=== PATIENT | male | born 1970 | race Caucasian/White ===

== ENCOUNTER 2022-05-08 18:22 | Emergency (ER) | payer OTHER, SELFPAY ==
[2022-05-08 18:43] VITALS: BP 166/100; PULSE 62; RESP 16; TEMP 36.1; O2SAT 97; BMI 39.9
--- NOTE | 2022-05-08 19:42 | ED_ITS ---
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 Patient states he developed some back pain last night prior to going to bed, the back pain is on the right side upper lumbar area, he went to work today a [employer] and it bothered him all day, he is on his feet all day, he got associated nausea with the pain. Took some Tylenol 500 mg after w ork and had an episode of vomiting. Pain is 4/10, dull ache, no radiation, patient denies any abdominal pain, denies any urinary complaints, patient has had normal bowel movements. Patient denies any chest pain or shortness of breath, denies any cardiac history. He is recently on radiation for a spot they found on his liver, patient did have a recent scan 2 weeks ago. He is no longer on chemotherapy. Denies any fevers, chills myalgias arthralgias. Due to the worsening pain he presents emerged department. Related Data Home Medications Medication Instructions Recorded Confirmed No Known Home Medications 05/08/22 05/08/22 Allergies Allergy/AdvReac Type Severity Reaction Status Date / Time No Known Drug Allergies Allergy Verified 05/08/22 18:49 Review of Systems Status of ROS: Reports: 10 or more systems reviewed and unremarkable except as noted in History and below Exam Narrative: Exam Narrative: General: No obvious distress sitting comfortably HEENT: Tympanic membranes within normal limits bilaterally oropharynx is clear and voice, neck is supple full range of motion, pupils equal round and reactive to light extraocular muscles intact Lungs: Clear to auscultation bilaterally Heart: S1-S2, regular rhythm Abdomen: Distended but soft, bowel sounds present Muscle skeletal: Tender to palpation the right upper lumbar paraspinal musculature, CVA tenderness, no midline tenderness. Neuro: Alert awake and oriented x3 Psych: Mood and affect normal Const: Vital Signs, click to edit/add: Vital Signs - 24 hr 05/08/22 18:43 Temperature 97.0 F L Pulse Rate [Right Radial] 62 Respiratory Rate 16 Blood Pressure [Ri ght Upper Arm] 166/100 H Pulse Oximetry 97 Course Course Hospital Course: Vitals show mildly elevated blood pressure we will continue to monitor, workup will include IV peripheral, 0.9 normal saline bolus, 15 mg IV Toradol and 4 mg IV Zofran for pain and nausea, will obtain urinalysis, CBC, CMP and lipase. Likely obtain CT abdomen pelvis without IV contrast, rule out any metastasize or possible urolithiasis, likely muscle skeletal in nature. Differential diagnosis include life-threatening cauda equina and epidural abscess. Other differential diagnosis considered sprain, contusion, nerve root entrapment, radiculopathy, muscle spasm, urolithiasis, lumbar fracture pyelonephritis as well as other etiologies. Patient denied saddle anesthesia bowel or bladder incontinence or lower extremity weakness. Reevaluation(s) Reevaluation #1: Patient feeling better after the above care given, pain is improved. CBC shows no leukocytosis, platelet count of 134, fell percentage at 76.9, metabolic panel within normal limits, still awaiting urinalysis. Plan to obtain CT abdomen pelvis without IV contrast. Due to shift change transfer of care was given to Dr. Stephane Moses, please see his note for final disposition and plan. Time: 20:42 Vital Signs Vital signs: Initial Vital Signs Temperature 97.0 F L 05/08/22 18:43 Temperature Source Temporal Artery Scan 05/08/22 18:43 Pulse Rate 62 05/08/22 18:43 Respiratory Rate 16 05/08/22 18:43 Blood Pressure 166/100 H 05/08/22 18:43 Blood Pressure Mean 122 05/08/22 18:43 Blood Pressure Position Sitting 05/08/22 18:43 Pulse Oximetry 97 05/08/22 18:43 Oxygen Delivery Method 05/08/22 18:43 Vital Signs Temperature 97.0 F L 05/08/22 18:43 Pulse Rate 62 05/08/22 18:43 Respiratory Rate 16 05/08/22 18:43 Blood Pressure 166/100 H 05/08/22 18:43 Pulse Oximetry 97 05/08/22 18:43 Temperature 97.0 F L 05/08/22 18:43 Pulse Rate 62 05/08/22 18:43 Respiratory Rate 16 05/08/22 18:43 Blood Pressure 166/100 H 05/08/22 18:43 Pulse Oximetry 97 05/08/22 18:43 Medical Decision Making Lab Data Labs: Lab Results 05/08/22 05/08/22 Range/Units 20:05 20:05 WBC 6.51 (4.50-11.00) K/uL RBC 4.74 (4.30-5.90) m/uL Hgb 14.6 (13.5-17.5) gm/dL Hct 42.5 (37.0-53.0) % MCV 90 (80-100) fL MCH 31 (26-34) pg MCHC 34 (32-36) gm/dL RDW Coeff of Radha 12.3 (11.5-15.5) % Plt Count 134 L (140-440) K/uL Neut % (Auto) 76.9 H (42.0-72.0) % Lymph % (Auto) 12.9 L (20-44) % [place] % (Auto) 8.8 (0.0-11.0) % Eos % (Auto) 0.9 (0.0-7.0) % Baso % (Auto) 0.3 (0.0-3.0) % Neut # (Auto) 5.00 (1.7-7.0) K/uL Lymph # (Auto) 0.80 L (0.90-2.90) K/uL [place] # (Auto) 0.60 (0.00-0.90) K/UL Eos # (Auto) 0.06 (0.00-0.50) K/uL Baso # (Auto) 0.02 (0.00-0.30) K/uL Abs Immat Gran (auto) 0.01 (0.00-0.30) K/uL Sodium 139 (135-149) mmol/L Potassium 4.8 (3.6-5.1) mmol/L Chloride 103 (96-114) mmol/L Carbon Dioxide 27 (20-32) mmol/L BUN 15 (7-30) mg/dL Creatinine 1.2 (0.5-1.5) mg/dL Estimated Creat Clear 58.61 Estimated GFR 73 ml/min Glucose 116 H (60-115) mg/dL Calcium 9.1 (8.4-10.6) mg/dL Total Bilirubin 0.8 (0.1-1.5) mg/dL AST 46 H (12-35) U/L ALT 36 (4-50) U/L Alkaline Phosphatase 121 (40-150) U/L Total Protein 7.6 (6.0-8.3) g/dL Albumin 4.4 (3.3-5.0) g/dL Lipase 47 (23-300) U/L Discharge Plan Discharge Clinical Impression: Lower back pain Patient Disposition: Home, Self-Care Condition: Improved Instructions: Acute Low Back Pain (ED) Prescriptions: No Action No Known Home Medications 0RF Follow Up/Referrals: Adrián Turner MD [Primary Care Provider] - Stand Alone Forms: [employer] Info Instructions
[2022-05-08] MEDS: 0.9 % SODIUM CHLORIDE 1000 ml 1,000 ML IV (20:08)
[2022-05-08] MEDS: KETOROLAC 15 MG/ML inj IVP (20:08)
[2022-05-08] MEDS: ONDANSETRON 2 MG/ML inj 4 MG IVP (20:09)
[2022-05-08 20:16] LABS: Basophils Absolute Auto 0.02 K/uL (0.00-0.30); Basophils Percent Auto 0.3 % (0.0-3.0); Eosinophils Absolute Auto 0.06 K/uL (0.00-0.50); Eosinophils Percent Auto 0.9 % (0.0-7.0); Hematocrit 42.5 % (37.0-53.0); Hemoglobin* 14.6 gm/dL (13.5-17.5); Immature Granulocytes Abs Auto 0.01 K/uL (0.00-0.30); Lymphocytes Percent Auto 12.9 % (20-44); Mean Corpuscular HGB Conc 34 gm/dL (32-36); Mean Corpuscular Hemoglobin 31 pg (26-34); Mean Corpuscular Volume 90 fL (80-100); Monocytes Percent Auto 8.8 % (0.0-11.0); Neutrophils Percent Auto 76.9 % (42.0-72.0); Platelet Count* 134 K/uL (140-440); RDW Coefficient of Variation % 12.3 % (11.5-15.5); Red Blood Count 4.74 m/uL (4.30-5.90); White Blood Count* 6.51 K/uL (4.50-11.00)
[2022-05-08 20:18] LABS: Slide Review Reflex No
[2022-05-08 20:33] LABS: Albumin* 4.4 g/dL (3.3-5.0)
[2022-05-08 20:34] LABS: Chloride* 103 mmol/L (96-114); Potassium* 4.8 mmol/L (3.6-5.1); Sodium* 139 mmol/L (135-149)
[2022-05-08 20:36] LABS: Alkaline Phosphatase* 121 U/L (40-150); Aspartate Amino Transferase* 46 U/L (12-35); Bilirubin Total* 0.8 mg/dL (0.1-1.5); Blood Urea Nitrogen* 15 mg/dL (7-30); Carbon Dioxide* 27 mmol/L (20-32); Creatinine* 1.2 mg/dL (0.5-1.5); Est. Creatinine Clearance* 58.61; Estimated Glomerular Filt Rate 73 ml/min; Glucose* 116 mg/dL (60-115); Lipase* 47 U/L (23-300); Total Protein* 7.6 g/dL (6.0-8.3)
[2022-05-08 20:37] LABS: Alanine Aminotransferase* 36 U/L (4-50); Calcium* 9.1 mg/dL (8.4-10.6)
--- NOTE | 2022-05-08 21:10 | CRLHL7_ITS ---
For Patients: As a result of the Century Cures Act, medical imaging exams and procedure reports are released immediately into your electronic medical record. You may view this report before your referring provider. If you have questions, please contact your health care provider. INDICATION: Right-sided CVA tenderness. History of colon cancer and nephrolithiasis. TECHNIQUE: Noncontrast abdominopelvic CT. COMPARISON: January 08, 2022. Correlation is made with an MRI of the abdomen February 04, 2022. FINDINGS: New moderately severe right-sided hydronephrosis and hydroureter with right perinephric fat stranding secondary to a nearly 7 mm stone in the proximal right ureter just beyond the UPJ image 62 series 2, previously in the right kidney itself. Additional tiny punctate approximately 2 mm stone upper right kidney. No stones on the left. No left-sided hydronephrosis. No stones within the urinary bladder which is largely decompressed. The prostate gland and seminal vesicles are unremarkable. Postsurgical change from resection of the low rectosigmoid colon with an anastomotic suture line. When compared to January 08, 2022 there is a low dense lesion/metastasis in the right hepatic lobe image 26 series 2 measuring 2.4 x 4.0 cm previously 2.4 x 3.8 cm, segment 7. There is a 2nd larger metastasis within segment 6 of the right hepatic lobe measuring approximately 3.8 x 4 cm not well seen on January 08, 2022. No biliary dilatation. Cholelithiasis. No splenomegaly. The pancreas and adrenal glands are unremarkable. Normal unenhanced left kidney. The abdominal aorta and iliac arteries are of normal caliber. No ascites or lymphadenopathy. Clear included lung bases. IMPRESSION: 1. Moderately severe right-sided hydronephrosis and hydroureter secondary to a nearly 7 mm stone just beyond the right ureteropelvic junction. 2 mm stone upper pole right kidney. No stones on the left. 2. Two hepatic metastases one of which may be new and the other which is larger. Please see MRI February 04, 2022. 3. Postsurgical change from rectosigmoid anastomosis. Please note that all CT scans at this facility use dose modulation, iterative reconstruction, and/or weight-based dosing when appropriate to reduce radiation dose to as low as reasonably achievable. Dictated by Rajendra Alcala MD @ 05/08/2022 10:22:00 PM (Electronically Signed)
--- NOTE | 2022-05-08 21:31 | W.PC.EDHO ---
Primary Language: Preferred Language: Orientation Status: [] Alert & Oriented [] Slight Confusion [] Known Dx Dementia Transfers By: [] Assist of 1 [] Assist of 2 [] Lift Active Medications Generic Name Dose Route Start Last Admin Trade Name Patience PRN Reason Stop Dose Admin Ondansetron HCl 4 mg 05/08/22 19:55 05/08/22 20:09 Ondansetron 2 Mg/Ml Inj IVP 4 mg ONCE PRN Administration Discontinued Medications Generic Name Dose Route Start Last Admin Trade Name Patience PRN Reason Stop Dose Admin Sodium Chloride 1,000 mls @ 1,000 mls/hr 05/08/22 19:56 05/08/22 21:13 0.9 % Sodium Chloride 1000 Ml IV 05/08/22 20:55 Infused .Q1H MARIAH Infusion Ketorolac Tromethamine 15 mg 05/08/22 19:55 05/08/22 20:08 Ketorolac 15 Mg/Ml Inj IVP 05/08/22 19:56 15 mg ONCE ONE Administration Description of Symptoms ED Triage Present Problem patient is having pain in the lower back on the Description left side. minorly bothering last night. was getting ready for work and no injury. states a strong constant ache. got to work feeling nauseated. hx of radiation on the liver has a ca spot able to get rid of that. ED Triage Date of Onset of 05/08/22 Symptoms Pain Pain Description [Lower Back] Throbbing,Acute Pain Intensity [Lower Back] 5 Pain Intensity 3 Pain Scale Used [Lower Back] Numeric (1 - 10) Pain Scale Used Numeric (1 - 10) IV Insertion/Site Date of IV Line Insertion [ 05/08/22 Left Antecubital] Oxygen Administration Pulse Oximetry 97 Oxygen Delivery Method Room Air
[2022-05-08 22:14] LABS: Appearance Urine Clear (Clear); Bilirubin Urine Negative (Negative); Blood Urine 3+ (Negative); Color Urine Brown (Yellow); Glucose Urine Negative (Negative); Ketones Urine Negative (Negative); Leukocyte Esterase Urine Negative (Negative); Nitrite Urine Negative (Negative); Protein Urine 2+ (Negative); Specific Gravity Urine >= 1.030 (1.000-1.030); Urobilinogen Urine 0.2 (0.2-1.0); pH Urine 5.5 (5.0-8.5)
[2022-05-08 22:42] LABS: Other Sediment Urine 0; RBC Urine >100 (0-2)
[2022-05-08 22:55] VITALS: BP 161/96; PULSE 62; RESP 16; O2SAT 98
--- NOTE | 2022-05-08 23:20 | ED.GENADULT ---
HPI - General Adult General Chief complaint: Back Injury/Pain Stated complaint: Lower Right Back Pain Time Seen by Provider: 05/08/22 19:42 Source: patient Related Data Home Medications Medication Instructions Recorded Confirmed No Known Home Medications 05/08/22 05/08/22 Allergies Allergy/AdvReac Type Severity Reaction Status Date / Time No Known Drug Allergies Allergy Verified 05/08/22 18:49 PFSH PFSH Social History Do you use any of these nicotine containing products: None Second hand tobacco smoke exposure: No Non-prescribed substance use: denies use service: No Exam Const: Vital Signs, click to edit/add: Vital Signs - 24 hr 05/08/22 18:43 05/08/22 22:55 Temperature 97.0 F L Pulse Rate [Right Radial] 62 62 Respiratory Rate 16 16 Blood Pressure [Ri ght Upper Arm] 166/100 H 161/96 H Pulse Oximetry 97 98 Course Course Hospital Course: Vitals show mildly elevated blood pressure we will continue to monitor, workup will include IV peripheral, 0.9 normal saline bolus, 15 mg IV Toradol and 4 mg IV Zofran for pain and nausea, will obtain urinalysis, CBC, CMP and lipase. Likely obtain CT abdomen pelvis without IV contrast, rule out any metastasize or possible urolithiasis, likely muscle skeletal in nature. Differential diagnosis include life-threatening cauda equina and epidural abscess. Other differential diagnosis considered sprain, contusion, nerve root entrapment, radiculopathy, muscle spasm, urolithiasis, lumbar fracture pyelonephritis as well as other etiologies. Patient denied saddle anesthesia bowel or bladder incontinence or lower extremity weakness. Vital Signs Vital signs: Initial Vital Signs Temperature 97.0 F L 05/08/22 18:43 Temperature Source Temporal Artery Scan 05/08/22 18:43 Pulse Rate 62 05/08/22 18:43 Respiratory Rate 16 05/08/22 18:43 Blood Pressure 166/100 H 05/08/22 18:43 Blood Pressure Mean 122 05/08/22 18:43 Blood Pressure Position Sitting 05/08/22 18:43 Pulse Oximetry 97 05/08/22 18:43 Oxygen Delivery Method 05/08/22 18:43 Vital Signs Temperature 97.0 F L 05/08/22 18:43 Pulse Rate 62 05/08/22 18:43 Respiratory Rate 16 05/08/22 18:43 Blood Pressure 166/100 H 05/08/22 18:43 Pulse Oximetry 97 05/08/22 18:43 Temperature 97.0 F L 05/08/22 18:43 Pulse Rate 62 05/08/22 22:55 Respiratory Rate 16 05/08/22 22:55 Blood Pressure 161/96 H 05/08/22 22:55 Pulse Oximetry 98 05/08/22 22:55 Medical Decision Making MDM Narrative Medical decision making narrative: Care for this patient was handed to me at the end of Dr. Hernandez's shift. See his note for more information. He was waiting for results of CT scan. He and the patient indicated that he got great relief of his symptoms from the medication given which included Toradol. CT scan does report returned with evidence of a 7 mm stone in the right ureteropelvic junction. I informed the patient regarding these findings in indicated that he may need some help from a urologist as this is a larger than average stone and it is sit in proximally in regard to the urinary tract. The patient prefers to return home. He did received prescriptions for Toradol and [place]. I advised him to follow-up with his oncologist and to make a connection with the urologist. He should return if recurrent or worsening symptoms happen. Lab Data Labs: Lab Results 05/08/22 05/08/22 05/08/22 Range/Units 20:05 20:05 21:48 WBC 6.51 (4.50-11.00) K/uL RBC 4.74 (4.30-5.90) m/uL Hgb 14.6 (13.5-17.5) gm/dL Hct 42.5 (37.0-53.0) % MCV 90 (80-100) fL MCH 31 (26-34) pg MCHC 34 (32-36) gm/dL RDW Coeff of Radha 12.3 (11.5-15.5) % Plt Count 134 L (140-440) K/uL Neut % (Auto) 76.9 H (42.0-72.0) % Lymph % (Auto) 12.9 L (20-44) % [place] % (Auto) 8.8 (0.0-11.0) % Eos % (Auto) 0.9 (0.0-7.0) % Baso % (Auto) 0.3 (0.0-3.0) % Neut # (Auto) 5.00 (1.7-7.0) K/uL Lymph # (Auto) 0.80 L (0.90-2.90) K/uL [place] # (Auto) 0.60 (0.00-0.90) K/UL Eos # (Auto) 0.06 (0.00-0.50) K/uL Baso # (Auto) 0.02 (0.00-0.30) K/uL Abs Immat Gran (auto) 0.01 (0.00-0.30) K/uL Sodium 139 (135-149) mmol/L Potassium 4.8 (3.6-5.1) mmol/L Chloride 103 (96-114) mmol/L Carbon Dioxide 27 (20-32) mmol/L BUN 15 (7-30) mg/dL Creatinine 1.2 (0.5-1.5) mg/dL Estimated Creat Clear 58.61 Estimated GFR 73 ml/min Glucose 116 H (60-115) mg/dL Calcium 9.1 (8.4-10.6) mg/dL Total Bilirubin 0.8 (0.1-1.5) mg/dL AST 46 H (12-35) U/L ALT 36 (4-50) U/L Alkaline Phosphatase 121 (40-150) U/L Total Protein 7.6 (6.0-8.3) g/dL Albumin 4.4 (3.3-5.0) g/dL Lipase 47 (23-300) U/L Urine Color Brown A (Yellow) Urine Appearance Clear (Clear) Urine pH 5.5 (5.0-8.5) Ur Specific [place] >= 1.030 (1.000-1.030) Urine Protein 2+ A (Negative) Urine Glucose (UA) Negative (Negative) Urine Ketones Negative (Negative) Urine Blood 3+ A (Negative) Urine Nitrite Negative (Negative) Urine Bilirubin Negative (Negative) Urine Urobilinogen 0.2 (0.2-1.0) Ur Leukocyte Esterase Negative (Negative) Urine RBC >100 A (0-2) Urine WBC 5-10 A (0-5) Ur Squamous Epith Cells None (None-Few) Other Sediment 0 (None) Urine Bacteria None (None) Discharge Plan Discharge Clinical Impression: Lower back pain, Calculus, ureteral Patient Disposition: Home, Self-Care Condition: Improved Instructions: Acute Low Back Pain (ED) Prescriptions: No Action No Known Home Medications 0RF Follow Up/Referrals: Adrián Turner MD [Primary Care Provider] - Stand Alone Forms: [facility] Info Instructions
== END 2022-05-08 23:40 | disposition home or self-care (01) ==
PROVIDERS: Emergency Provider Student in an Organized Health Care Education/Training Program; PCP Family Medicine
DX: N20.1 Calculus of ureter (principal); M54.50 Low back pain, unspecified
CPT/HCPCS: 36415; 74176; 80053; 81001; 83690; 85025; 87086; 96374; 96375; 99283; 99284; 99285; J1885; J2405; J7030

== ENCOUNTER 2022-05-21 12:51 | Outpatient (CLI) | payer OTHER, SELFPAY ==
--- OUTSIDE RECORDS SUMMARY | 2022-04-21 09:14 | XMS_ITS | Continuity of Care Document ---
:1970 Author Care Team Providers Name Role Phone MD Andie Turner Primary Care Physician MD Belkys Attending Physician Unavailable Allergies, Adverse Reactions, Alerts No known allergies Social History Smoking Status Status Start Date End Date Date of Observat ion Never smoked tobacco July 3:05pm (finding) Additional Data Assigned Sex Male Problems Active Problems Medical Problem Onset Date Status GI bleed Active Colon adenocarcinoma November 01, 2018 Active Exposure to COVID-19 virus Active Medications Medication Status Dose Units Route Directions Qty Days Start End Ins tructions Date Date Bisacodyl Active 5 MG PO Daily as 30 (Dulcolax) 5 needed Mg TAB Diphenoxylate Active 1-2 TAB PO Four Times 45 Decembe Hcl/Atropine Daily as r 1st, (Lomotil) 2.5 needed 2020 Mg/0.025 Mg 11:55am TAB Ibuprofen Active 600 MG PO Every 6 30 Hours as needed Loperamide Active 2-4 MG PO As Needed 1 Novembe ta ke as directed on the box for watery diarrhea not Hcl (Imodium) r 3rd, contr olled with lomotil.DC when stools <6/day 2 Mg CAP 2019 4:10pm Lorazepam Active 0.5-1 MG PO Bedtime as 30 Februar If needed for insomnia after chemo treatments. Do not take needed y 10th, with alcoho l or other sedating medications. 2020 3:00pm Metamucil Active Crackers Ondansetron Active 4 MG PO Every July Hcl (Zofran) Hours as , 4 Mg TAB needed 2019 5:21pm Prochlorperaz Active 10 MG PO Three Times 45 Decembe ine Maleate A Day as r , needed 2020 4:03pm Amoxicillin/C Discontin 1 TAB PO Twice Daily ua lavulanate ued For 14 Days r 15th, ry Potassium 2020 16, (Amoxicillin 12:40pm 2021 & Pot 9:32am Clavulanate) 875 Mg/125 Mg TAB Capecitabine Discontin 1500 MG PO Twice A Day 84 14 M arch take 3 ued r , 30, tablets twice 2020 2021 daily D1-14 8:51am 10:11a in a 21 day m cycle. Capecitabine Discontin 1500 MG PO Twice A Day 84 14 ecemb ON HOLD ued r 17th, er 1500 mg PO B ID DAYS 1-14, Q21D. 2020 10, 12:18pm 2020 11:54a m Capecitabine Discontin 1500 MG PO Twice A Day 84 April 1500 mg PO ued 28th, er BID DAYS 2020 17, 1-14, Q21D. 12:37pm 2020 12:18p m Capecitabine Discontin 2000 MG PO Twice A Day 128 uar J arpit Take 4 * 500 mg tablets= total dose (Xeloda) 500 ued y , 14, of 20 00 mg twice daily for 7 days on and 7 days off, in 28 Mg TAB 2020 2020 day cycle. 2:42pm 1:34pm Capecitabine Discontin 2000 MG PO Twice A Day 128 14 ebrua Take 4 * 500 mg tablets= total dose (Xeloda) 500 ued r 16th, ry of 20 00 mg twice daily for 7 days on and 7 days off, in 28 Mg TAB 2020 07, day cycle. 9:31am 2020 2:42pm Capecitabine Discontin 1500 MG PO Twice A Day 84 ecemb Take 3 * 500 mg tablets= total dose (Xeloda) 500 ued r 18th, er of 15 00 mg twice daily for 7 days on and 7 days off, in 28 Mg TAB 2019, day cycle. 1:36pm 2019 9:31am Capecitabine Discontin 1500 MG PO Twice A Day 84 14 N ovemb Take3 * 500 mg tablets= total dose (Xeloda) 500 ued er er of 1500 mg twice daily for 14 days in 21 day cycle. Mg TAB 15, 2019 12:17pm 1:36pm Capecitabine Discontin 300 MG OR Twice A Day 56 April tem Take 2 * 150 mg tablets and 3 * 500 mg tablets= total dose (Xeloda) 150 ued , keely of 1800 mg twice daily for 14 days in 21 day cycle. Mg TAB 2019, 3:39pm 2019 12:17p m Capecitabine Discontin 1500 MG PO Twice A Day 84 April tem Take 2 * 150 mg tablets and 3 * 500 mg tablets= total dose (Xeloda) 500 ued 29, keely of 1800 mg twice daily for 14 days in 21 day cycle. Mg TAB 2019, 3:39pm 2019 12:17p m Capecitabine Discontin 300 MG OR Twice A Day 56 April y (Xeloda) 150 ued , , Mg TAB 2019 2019 1:30pm 3:39pm Capecitabine Discontin 1500 MG PO Twice A Day 84 April y (Xeloda) 500 ued , , Mg TAB 2019 2019 1:30pm 3:39pm Capecitabine Discontin 1500 MG PO Twice A Day 56 April PO BID DAYS 1- 14, Q21D X8 CYCLES. Dispense appropriate combo ued , er of pills to ob tain ordered dose. 21 day supply. 2018, 1:26pm 2018 11:10a m Capecitabine Discontin 2000 MG PO Twice A Day 56 January PO BID DAYS 1-14, Q21D X8 CYCLES. Dispense appropriate combo ued , , of pills to ob tain ordered dose. 21 day supply. 2018 2018 4:42pm 1:26pm Diazepam Discontin 5 MG PO Three Times January (Valium) 5 Mg ued A Day 2018 3:19pm Diphenoxylate Discontin 1-2 TAB PO Four Times 45 Novembe D ecemb Hcl/Atropine ued Daily as r 3rd, er (Lomotil) 2.5 needed 2019 10, Mg/0.025 Mg 4:01pm 2020 TAB 11:54a m Diphenoxylate Discontin 1-2 TAB PO Four Times 30 Novembe N ovemb Hcl/Atropine ued Daily as r 2nd, er (Lomotil) 2.5 needed 2019 3rd, Mg/0.025 Mg 12:19pm 2019 TAB 4:01pm Diphenoxylate Discontin 2 TAB PO Four Times 30 Septemb N ovemb Hcl/Atropine ued Daily as er , er (Lomotil) 2.5 needed 2019 2nd, Mg/0.025 Mg 9:47am 2019 TAB 12:17p m Enoxaparin Discontin 40 MG SUBQ Daily 04 March Sodium ued 2018 9:19am Lidocaine Discontin 1 PATCH TOP Every January CRISTEL LY FOR 12 (Lidoderm) 5 ued Hours , HOURS O F % TDSY 2018 EVERY 24 HOUR 3:19pm PERIOD Lidocaine-Raine Discontin 1 KIT EX As Needed 26 March Akbar anguiano locaine ued , er (Lido-Prilo 2018, Jose Pack 3:41pm 2018 2.5-2.5 %) 1 11:10a Kit KIT m Loperamide Discontin 2 MG PO as needed Novemb loose stools Hcl (Imodium ued er A-D) 2 Mg CAP 2018 11:10a m Lorazepam Discontin 0.5-1 MG PO Every 4 50 Decembe February [place] N ued Hours as r 1st, 3rd, Nausea/vom iti needed for 2020 2021 ng Nausea/Vomi 8:53am 3:14pm ting Lorazepam Discontin 0.5-1 MG PO Every 4 50 Decembe Decemb P RN ued Hours as r 1st, er Nausea/vom iti needed for 2020 10, ng Nausea/Vomi 8:49am 2020 ting 8:53am Lorazepam Discontin 0.5-1 MG PO Bedtime as Febru a If needed for insomnia after chemo treatments. Do not take ued needed er ry with alcohol or other sedating medications. , , 2019 2020 11:32am 2:59pm Lorazepam Discontin 0.5-1 MG PO Every 4 January Novemb PRN ued Hours as , er Nausea/vomi ti needed for 2018, ng Nausea/Vomi 4:42pm 2018 ting 11:10a m Potassium Discontin 20 MEQ PO Daily Januar Chloride ued r , y 2019, 8:51am 2020 12:29p m Prochlorperaz Discontin 5 MG PO Three Times 24 May De cemb ine Maleate ued A Day as , er needed 2019, 1:35pm 2020 4:03pm Prochlorperaz Discontin 10 MG PO Every 4-6 22 February Akbar anguiano PRN ine Maleate ued Hours as , er Nause a/vomiti needed for 2018, ng Nausea/Vomi 4:42pm 2018 ting 11:10a m Sofosbuvir-Ve Discontin 1 TAB PO Daily 20 February lpatasvir ued , (Epclusa 2019 400-100 Mg) 1 3:19pm Tab TAB Tizanidine Discontin 4 MG PO Three Times January Hcl ued A Day as , needed 2018 3:19pm Immunizations Immunization Event Not Given Dose Pipe Finisher Lot Number Vac cine Date Reason Number Informatio n Statement (VIS) Deta il COVID-19 Pfizer January 24 [id number] [id number] 2020 COVID-19 Pfizer February 26 [email or web address] [id number] 2020 Relevant Diagnostic Tests and/or Laboratory Data Laboratory Results Test Date/Time Result Interpretation Reference Result Comment Performing Range Site White Blood December 3.86 5.00-10.00 [facility] Count 2021 [facility] 8:51am [place] [address] Red Blood December 4.11 4.32-5.72 [facility] Count 2021 [facility] 8:51am [place] [address] Hemoglobin December 13.5 13.5-17.5 [facility] 2021 [facility] [address] 8:51am [place] [address] Hematocrit December 38.5 38.8-50.0 [facility] [address] [facility] [address] 8:51am [place] [address] Mean December 94 81-95 [facility] Corpuscular [address] 8:51am [place] [address] Mean December 33 27-34 [facility] Corpuscular [address] [facility] [address] Hemoglobin 8:51am [facility] [place] [address] Mean December 35 32-36 [facility] Corpuscular [address] [facility] [address] Hemoglobin 8:51am [place] [address] Concent Platelet December 173 150-450 [facility] Count 2021 [facility] [address] 8:51am [place] [address] RDW December 13.4 11.5-15.3 [place] [facility] Coefficient [address] [facility] [address] of Variation 8:51am [place] [address] Neutrophils March 32.4 50.0-70.0 [facility] (%) (Auto) 2021 [facility] 8:51am [place] [address] Lymphocytes March 40.4 25.0-45.0 [facility] (%) (Auto) 2021 [facility] 8:51am [place] [address] Monocytes (%) December 15.8 0.00-11.0 [facility] (Auto) 2021 [facility] 8:51am [place] [address] Eosinophils March 9.6 0.0-7.0 [facility] (%) (Auto) 2021 [facility] 8:51am [place] [address] Basophils (%) December 0.8 0.0-3.0 [facility] (Auto) 2021 [facility] 8:51am [place] [address] Immature March 1.0 [facility] Granulocyte % 2021 [facility] (Auto) 8:51am [place] [address] RDW May 01, 11.9 11.5-15.3 [place] [facility] Coefficient 2020 [address] [facility] of Variation 1:21pm [place] [address] Neutrophils # December 1.25 1.70-7.00 [facility] (Auto) 2021 [facility] 8:51am [place] [address] Lymphocytes # December 1.56 0.90-2.90 [facility] (Auto) 2021 [facility] 8:51am [place] [address] Monocytes # December 0.61 0.30-0.90 [facility] (Auto) 2021 [facility] 8:51am [place] [address] Eosinophils # December 0.37 0.00-0.50 [facility] (Auto) 2021 [facility] 8:51am [place] [address] Basophils # December 0.03 0.00-0.20 [facility] (Auto) 2021 [facility] 8:51am [place] [address] Immature March 0.04 [facility] Granulocyte # 2021 [facility] (Auto) 8:51am [place] [address] Random March 126 60-115 [facility] Glucose 2021 [facility] 8:51am [place] [address] Blood Urea December 14 7-30 [facility] Nitrogen 2021 [facility] 8:51am [facility] [address] Creatinine December 1.1 0.5-1.5 [facility] 2021 [facility] 8:51am [place] [address] Estimated March 65.749 [facility] Creatinine 2021 [facility] Clearance 8:51am [facility] [address] Sodium Level December 139 135-149 [facility] 2021 [facility] 8:51am [facility] [address] Potassium December 4.1 3.6-5.1 [facility] Level 2021 [facility] 8:51am [facility] [address] Chloride December 101 96-114 [facility] Level 2021 [facility] 8:51am [facility] [address] Carbon December 28 20-32 [facility] Dioxide Level 2021 [facility] 8:51am [facility] [address] Calcium Level December 9.1 8.4-10.6 [facility] 2021 [facility] 8:51am [facility] [address] Magnesium November 2.2 1.5-2.6 [facility] Level 2020 [facility] 1:10pm [facility] [address] Total Protein December 7.5 6.0-8.3 The use of [facility] Lab 2021 Eltrombopag, a 1999 [facility] 8:51am [place] [address] stimulant used to treat thrombocytopeni a and aplastic anemia, interferes with this measurement of total protein. A 5% bias has been observed. Albumin December 4.4 3.3-5.0 [facility] 2021 [facility] 8:51am [facility] [address] Total March 0.5 0.1-1.5 [facility] Bilirubin [address] 8:51am [place] [address] Aspartate January 22 12-35 [facility] Amino Transf [address] (AST/SGOT) 8:51am [place] [address] Alanine January 19 4-50 [facility] Aminotransfer 2021 [facility] ase 8:51am [facility] [address] (ALT/SGPT) Alkaline December 40-150 [facility] Phosphatase [address] 8:51am [facility] [address] Coronavirus August NEGATIVE NEGATIVE The 2018 [facility] (COVID-19)(PC 2020 SARS-CoV- coronavirus [address] [facility] R) 11:06am 2 (SARS-CoV-2) [place] [address] target nucleic acids are not detected by RT-PCR. This result does not rule out SARS-CoV-2 in the patient, as the sensitivity of the test depends on timing of the specimen collection and quality of the specimen. Results should be correlated with the patient's history and clinical presentation. Carcinoembryo January 01, 3.0 <=3.8 [facility] [employer] maribel Antigen 2021 INFORMATION: [address] 10:01am [address]cinoembryoni [facility] [address] c AntigenThe Kim CEA electrochemilum inescent immunoassay was used.Results obtained with different test methods or kits cannot beused interchangeably . Measurement of CEA has been shown to beclinically relevant in the management of patients withcolorectal, breast, lung, prostatic, pancreatic, and ovariancarcinom as. Smokers may have slightly elevated levels of CEA.The CEA assay value, regardless of level, should not beinterpreted as evidence for the presence or absence of malignantdiseas e and is not recommended for use as a screening procedureto detect the presence of cancer in the general population.Perf ormed By: [address] [place], [place] [email or web address] Director: Geena Giron MD Advance Directives Advance Directive Response Recorded Date/Time Has patient completed a No August 23 3:05pm Health Care Directive? Insurance Providers Guarantor Marita Hall Address [address] [facility] [address] Contact Info. Home Phone: Payer Policy Id Coverage Id Subscriber's Subscriber Id Effective E xpiration Name Date Date [facility] [id number] Marita Hall [address] Encounters Encounter Location(s) Arrival/Admit Date Discharge/Depart Date Provider(s) Registered [place] April 02, 2022 Kamala Rizvi [facility] 7:07am Plan of Treatment Future Tests Future scheduled test information is unavailable Pending Tests Pending diagnostic test information is unavailable Future Visits Future appointment information is unavailable Referrals to Other Providers Reason for Referral Start Provider Provider Contact Provider Address Referral Date Information Adrián Turner Work Phone: ASHISH ROWLEY [facility] Andie FRANCOIS [address] [place] [address] [facility] [phone] Future Procedures Future procedure information is unavailable Future Medications Future medication information is unavailable Patient Instructions See Additional Instructions Palonosetron (By injection) Palonosetron (By injection)
--- NOTE | 2022-05-21 13:00 | CRLHL7_ITS ---
For Patients: As a result of the Century Cures Act, medical imaging exams and procedure reports are released immediately into your electronic medical record. You may view this report before your referring provider. If you have questions, please contact your health care provider. INDICATION: Colon cancer. Hepatic metastases. History of pulmonary nodules. TECHNIQUE: Contrast-enhanced CT of the chest abdomen and pelvis. COMPARISON: January 08, 2022. Correlation is made with an abdominopelvic CT May 08, 2022. FINDINGS: CT chest: There is an approximate 2 mm pulmonary nodule within the left upper lobe image 29 series 3 not convincingly present previously. There is a tiny pulmonary nodule at the right lung base image 40 series 3 measuring 2-3 mm previously 5 mm. Again noted is fibrosis or atelectasis at the left lung base and right middle lobe. No pleural or pericardial effusions. The trachea and mainstem bronchi are patent and clear. No thoracic lymphadenopathy. The included thyroid gland is unremarkable. There is a radiodense device within the subcutaneous soft tissues of the medial left chest wall likely a cardiac event recorder seen previously. CT of the abdomen and pelvis: 2.2 x 3.2 cm lesion segment VII of the liver previously 2.5 x 3.9 cm. Low-dense lesion segment right hepatic lobe, image 84 series 2 measuring 3.6 x 4.2 cm previously on January 08, 2022 it measured up to 2.1 cm. No other additional hepatic lesions are confidently identified. There are however 3 new small clips within the right hepatic lobe potentially fiducial markers. A lesion described in segment 5 of the right hepatic lobe on January 08, 2022 is not at all well seen on today`s study. No splenomegaly. The pancreas is unremarkable. Cholelithiasis. Normal adrenal glands. Normal-appearing left kidney. Persistent moderate to moderately severe right-sided hydronephrosis and proximal to mid hydroureter secondary to a nearly 7 mm stone within the middle 3rd of the right ureter. This has progressed or moved slightly more distally when compared to May 08, 2022. Urologic consultation may be warranted for stone extraction. The stomach and duodenum are largely decompressed. The small large bowel are negative for obstruction ileus. There is no evidence for ascites. Postsurgical change from rectosigmoid resection and reanastomosis, image 188 series 2. The urinary bladder, prostate gland, and seminal vesicles are normal. The included skeleton is unremarkable. IMPRESSION: 1. 2 millimeter left upper lobe pulmonary nodule possibly new. Small decrease in the size of right lung base nodule from 5 millimeters down to between 2 and 3 millimeters. 2. Two right hepatic lobe metastases as described. The segment lesion is larger than on January 08, 2022. The lesion in segment VII of the liver is slightly smaller. A small lesion described in segment V of the prior study January 08, 2022 is not convincingly seen today. 3. No new hepatic lobe lesions. Three new small radiodense markers in the right hepatic lobe possibly fiducial markers. 4. Cholelithiasis. No convincing evidence for cholecystitis. 5. Persistent right-sided hydronephrosis secondary to a 7 mm stone in the middle 3rd of the right ureter. Urologic consultation regarding stone retrieval may be helpful. 6. No skeletal lesions identified. Please note that all CT scans at this facility use dose modulation, iterative reconstruction, and/or weight-based dosing when appropriate to reduce radiation dose to as low as reasonably achievable. Dictated by Rajendra Alcala MD @ 05/21/2022 8:15:52 PM (Electronically Signed)
--- NOTE | 2022-05-21 13:45 | CRLHL7_ITS ---
For Patients: As a result of the Century Cures Act, medical imaging exams and procedure reports are released immediately into your electronic medical record. You may view this report before your referring provider. If you have questions, please contact your health care provider. MRI ABDOMEN W/WO CONTRAST, 05/21/2022 INDICATION: Colon cancer. COMPARISON: CT dated 05/08/2022, and 01/08/2022; MRI dated 02/04/2022 and 05/09/2021. TECHNIQUE: Multiphasic, multisequence MRI of the abdomen, liver protocol was performed without and with contrast. 15 cc of Dotarem administered intravenously. FINDINGS: Overall evaluation is significantly limited by deficient clinical information. What is clear and as seen previously, there is a post-ablation site in segment VII measuring 2.9 x 2.1 cm, without evidence of residual or recurrent disease after the ablation performed late 2020. An area/lesion in a subcapsular location in the posterior right hepatic lobe, segment measures 5.6 x 4.0 cm on this examination, significantly increased from MRI dated 02/04/2022, but not significantly changed since 05/08/2022 CT examination when it measured 5.6 x 4.0 cm. On previous MRI it measured 27 x 22 mm. On this examination there is partial T1 signal hyperintensity, and there is stranding and trace edema around the lesion. No subtracted images are available. The lesion/area that demonstrated enhancement previously, however now does not clearly do so. There is an irregular margin which is somewhat atypical for post-ablation changes although somethings such as the T1 signal hyperintensity suggests that it could be. In addition, three fiducials which appeared sometime between 01/08 and 05/08 within the inferior right hepatic lobe suggest potentially radiation has been performed externally. Persistent right-sided hydronephrosis associated with a stone was seen better on the CT dated 05/06. No suspicious lymphadenopathy in the upper abdomen. Adrenal glands appear normal. Large gallstone in the gallbladder which is nondistended however. The spleen is normal in size. No ascites. No pleural effusion in the lung bases. IMPRESSION: 1. Stable post-ablation change in a segment VII lesion after ablation performed at the end of 2020 without evidence of residual or recurrent disease. 2. Interval enlargement of the lesion in segment compared to prior MRI with an irregular margin and intrinsic T1 hyperintensity, with minimal if any enhancement. However, the lesion is stable since 05/08. This could represent changes from ablation but since there are multiple fiducials also in the area this could also be SBRT change (although this is not typically performed for ablatable liver lesions). Correlate with history. 3. Persistent severe right sided hydronephrosis related to ureteral stone. 4. No suspicious lymphadenopathy. Barron Barry M.D. Interventional Radiology/Diagnostic Radiology (IR/DR) [email or web address] DW/Dictated by: Barron Barry MD @ 05/24/2022 12:45:00 PM (Electronically Signed)
[2022-05-21 15:22] LABS: Basophils Absolute Auto 0.03 K/uL (0.00-0.30); Basophils Percent Auto 0.5 % (0.0-3.0); Eosinophils Absolute Auto 0.24 K/uL (0.00-0.50); Eosinophils Percent Auto 4.2 % (0.0-7.0); Hematocrit 38.5 % (37.0-53.0); Hemoglobin* 13.4 gm/dL (13.5-17.5); Immature Granulocytes Abs Auto 0.04 K/uL (0.00-0.30); Lymphocytes Absolute Auto 1.14 K/uL (0.90-2.90); Mean Corpuscular HGB Conc 35 gm/dL (32-36); Mean Corpuscular Hemoglobin 31 pg (26-34); Mean Corpuscular Volume 89 fL (80-100); Monocytes Percent Auto 10.5 % (0.0-11.0); Neutrophils Absolute Auto 3.64 K/uL (1.7-7.0); Neutrophils Percent Auto 64.1 % (42.0-72.0); Platelet Count* 145 K/uL (140-440); RDW Coefficient of Variation % 12.1 % (11.5-15.5); Red Blood Count 4.35 m/uL (4.30-5.90); White Blood Count* 5.69 K/uL (4.50-11.00)
[2022-05-21 15:37] LABS: Albumin* 4.2 g/dL (3.3-5.0); Chloride* 102 mmol/L (96-114)
[2022-05-21 15:38] LABS: Potassium* 5.2 mmol/L (3.6-5.1); Sodium* 136 mmol/L (135-149)
[2022-05-21 15:39] LABS: Slide Review Reflex No
[2022-05-21 15:40] LABS: Aspartate Amino Transferase* 33 U/L (12-35); Bilirubin Total* 0.7 mg/dL (0.1-1.5); Carbon Dioxide* 30 mmol/L (20-32); Creatinine* 1.7 mg/dL (0.5-1.5); Estimated Glomerular Filt Rate 48 ml/min
[2022-05-21 15:41] LABS: Alanine Aminotransferase* 18 U/L (4-50); Alkaline Phosphatase* 126 U/L (40-150); Blood Urea Nitrogen* 28 mg/dL (7-30); Calcium* 9.1 mg/dL (8.4-10.6); Glucose* 103 mg/dL (60-115); Total Protein* 7.6 g/dL (6.0-8.3)
[2022-05-23 12:34] LABS: Carcinoembryonic Antigen 2.5 ng/mL (<=3.8)
== END 2022-05-21 12:52 | disposition home or self-care (01) ==
PROVIDERS: PCP Family Medicine; Visit Provider Internal Medicine Hematology & Oncology
DX: C18.9 Malignant neoplasm of colon, unspecified (principal); K76.9 Liver disease, unspecified; N13.30 Unspecified hydronephrosis
CPT/HCPCS: 36415; 71260; 74177; 74183; 80053; 82378; 85025; A9575; Q9967

== ENCOUNTER 2022-07-31 07:58 | Outpatient (CLI) | payer OTHER, SELFPAY ==
--- NOTE | 2022-07-31 09:00 | CRLHL7_ITS ---
For Patients: As a result of the Century Cures Act, medical imaging exams and procedure reports are released immediately into your electronic medical record. You may view this report before your referring provider. If you have questions, please contact your health care provider. Indication: Metastatic colon cancer. Technique: Contrast CT chest abdomen pelvis Comparison: CT chest abdomen and pelvis 05/21/2022 Findings: Normal caliber thoracic aorta heart size is normal. No pericardial effusion. Previous 2 millimeter left upper lobe nodule not clearly seen on the current study. 4 millimeter pulmonary nodule right lower lobe series 3, image 40 is not significantly changed. There is no effusion. Again similar findings of right middle and lower lobe atelectasis/consolidation. Stable post ablation changes segment 7 measuring approximately 2.2 x 3.2 centimeters unchanged. Series 2 image 109. Tiny low-density lesion anterior inferior right hepatic lobe series 2, image 118 not clearly seen on the prior study too small to characterize attention on follow-up. Decreased size of low-density subcapsular right posterior hepatic lobe low density lesion ( segment 6 )with adjacent fiducial markers. This area measures 5 by 3.5 centimeters previously measuring 5.9 x 4 centimeters when remeasured similarly locations. Spleen pancreas unremarkable cholelithiasis gallbladder contracted there may be some wall thickening or inflammatory change. No hydronephrosis currently seen on the right or obstructing stone kidneys unremarkable. Normal caliber abdominal aorta. Urinary bladder unremarkable. Prostate gland unremarkable fat containing inguinal hernias. Anastomosis rectosigmoid colon the bowel appears unremarkable no adenopathy is seen. No suspicious bony lesions are seen. Impression: 1. Stable post ablation changes segment 7. Slight decrease size in segment low density from the prior with adjacent fiducial markers. 2. 4 millimeter right lower lobe pulmonary unchanged. No new nodules are seen. Similar appearance of right middle lobe and left lower lobe opacities and basilar atelectasis. Please note that all CT scans at this facility use dose modulation, iterative reconstruction, and/or weight-based dosing when appropriate to reduce radiation dose to as low as reasonably achievable. Dictated by Paula Kendrick MD @ 07/31/2022 10:31:46 AM (Electronically Signed)
--- NOTE | 2022-07-31 09:15 | CRLHL7_ITS ---
For Patients: As a result of the Century Cures Act, medical imaging exams and procedure reports are released immediately into your electronic medical record. You may view this report before your referring provider. If you have questions, please contact your health care provider. Indication: Malignant neoplasm of the rectosigmoid junction. Technique: MRI of the abdomen without and with intravenous gadolinium. Three plane localizer, 3 plane true FISP, axial and coronal T2 weighted haste, axial T1 weighted in and out of phase, axial T2 weighted without and with fat suppression, axial STIR, and pre and post contrast axial coronal T1 weighted fat-suppressed VIBE pulse sequences were obtained. 15 cc of IV dotarem. Comparison: MRI of the abdomen, 05/21/2022. MRI of the abdomen, 02/04/2022. MRI of the abdomen, 05/09/2021. Findings: The patient has undergone microwave ablation of a colorectal liver metastasis in segment VII, which was performed 09/10/2021. The ablation site appears stable when compared with 05/21/2022, with no residual internal contrast enhancement. The defect measures 3.3 x 2.2 cm on image 36, series 15, and is hypointense to adjacent normal liver parenchyma on the portal venous phase. There is an additional defect in segment , which currently measures 4.2 x 3.8 cm, image 52, series 15. This previously measured 4.2 x 4.1 cm on the MR performed 05/21/2022. This may have been treated with radiotherapy. There is a suspicious region of restricted diffusion in segment VIII, near its junction with segment IV, which measures 9 millimeters on image 55, series 11. This corresponds to a hypodense observation on the portal venous phase, CT performed 07/31/2022. A new liver metastasis is suspected. Spleen size is normal. No adrenal mass. Symmetric nephrograms. No solid renal mass. There is no pancreatic mass or glandular atrophy. No pleural or pericardial effusion. Normal marrow signal intensity. Visceral artery branches are patent. IVC is patent. No mucosal hyper enhancement or perienteric edema involving the small bowel/colon. Cholelithiasis. No secondary signs for cholecystitis. Stable region of consolidation within the right middle lobe. Impression: 1. Status post image guided microwave ablation of a colorectal liver metastasis in segment VII. 2. Additional lesion in segment is presumably a metastasis treated with radiotherapy. 3. There is a new lesion in segment VIII, there is junction with segment IV, seen on diffusion weighted imaging. This corresponds with a sub centimeter hypodense lesion on the recent CT scan from 07/31/2022. A new liver metastasis is suspected. Multidisciplinary evaluation is advised. 4. No abdominal lymphadenopathy or ascites. Liver morphology is non cirrhotic. 5. Cases such as this may benefit from a multidisciplinary evaluation. If you would like to have this patent discussed at the weekly [facility] [place] ([facility]) liver tumor conference, please call [phone] or [phone]. Dictated by Emil Dias MD @ 08/05/2022 11:53:35 AM (Electronically Signed)
== END 2022-07-31 07:59 | disposition home or self-care (01) ==
PROVIDERS: PCP Family Medicine; Visit Provider Internal Medicine Hematology & Oncology
DX: C19 Malignant neoplasm of rectosigmoid junction (principal); R91.1 Solitary pulmonary nodule; C78.7 Secondary malignant neoplasm of liver and intrahepatic bile duct
CPT/HCPCS: 71260; 74177; 74183; A9575; Q9967

== ENCOUNTER 2022-09-19 14:24 | Outpatient (RCR) | payer OTHER, SELFPAY ==
--- NOTE | 2022-09-12 14:01 | ONC.NURNOTE ---
Addendum entered by Julieta Scruggs RN 09/16/22 10:57: Patient called back and stated due to being worried about SO he hasn't returned calls. Engineering Tech explained that he needs to take care of himself and get his biopsy done and also come in to [facility] for a quick blood draw so we can send out liquid biopsy. Patient states he will come in within the next week to do liquid biopsy and get number for [facility] Original Note: Engineering Tech called and left message for patient to call-still needs biopsy and also could get liquid biopsy done right here in clinic. No follow ups made patient has been worried about SO
--- NOTE | 2022-09-19 15:22 | ONC.NURNOTE ---
Patient here for liquid biopsy- drawn per [facility] One instuctions packaged in [employer] mailing envelope and [employer] called at for cone picker today at the ER desk uppers edge burnisher planned by 7 pm tonite Transport C# [id number]
--- NOTE | 2022-11-13 12:06 | ONC.NURNOTE ---
Patient given number to [facility] again to get biopsy done-Dr. Barboza
--- NOTE | 2022-11-13 12:19 | ONC.NURNOTE ---
Addendum entered by Geetha Ortiz RN 11/17/22 15:22: Patient called and states that he lost this number, was given to patient again to call and make this appointment. Original Note: Orders re-faxed and patient given phone number to [phone] Patient told to call when appointment set up so that he can see provider and get plan in place
== END 2022-11-24 23:59 | disposition home or self-care (01) ==
LOC: CCIC 14:24
PROVIDERS: PCP Family Medicine; Referring Provider Family Medicine; Visit Provider Internal Medicine Hematology & Oncology
DX: C19 Malignant neoplasm of rectosigmoid junction (principal)
CPT/HCPCS: 99212; 99213; 99214; 99215

== ENCOUNTER 2023-02-04 08:16 | Outpatient (CLI) | payer OTHER, SELFPAY ==
--- NOTE | 2023-02-04 08:15 | CRLHL7_ITS ---
For Patients: As a result of the Century Cures Act, medical imaging exams and procedure reports are released immediately into your electronic medical record. You may view this report before your referring provider. If you have questions, please contact your health care provider. Indication: Malignant neoplasm of the rectosigmoid junction. Comparison: MRI abdomen 07/31/2022, 05/21/2022; 02/04/2022 Technique: MRI of the abdomen was performed with the following sequences: axial and coronal T2 weighted, axial T2 fat saturated, axial diffusion, axial T1 in and out of phase, axial and coronal 3D T1 weighted before and after intravenous contrast administration. Contrast: 15 mL Dotarem Findings: Liver: Noncirrhotic morphology. Patent hepatic vessels. Lesions: -3 cm segment 7 ablation defect without evidence of residual recurrent disease. -4.6 cm segment 6 defect which may represent post radiotherapy changes. No evidence of residual recurrent disease. -1.4 cm focus of diffusion restriction at the junctions of segments 4/8 (series 11, image 20), increased in size from prior examination and which corresponds to hypoattenuated lesion seen on CT performed the same day. Gallbladder: Contains dependently layering stones. Biliary system: No biliary distention, filling defect, mass or stricture. Pancreas: Normal caliber main pancreatic duct. No discrete pancreatic lesions. Other abdominal organs: Spleen, kidneys, and adrenal glands are without focal pathology. Bone marrow signal: Normal Other findings: No lymphadenopathy or ascites Impression: 1. 1.4 cm focus of diffusion restriction at the junctions of segments 4/8 which is increased in size from prior examination with corresponding hypoattenuated lesion on CT scan performed the same day is highly concerning for metastatic disease. 2. Stable post treatment changes involving lesions in segments 6 and 7. Dictated by Quoc Dukes MD @ 02/05/2023 12:53:44 PM (Electronically Signed)
--- NOTE | 2023-02-04 10:00 | CRLHL7_ITS ---
For Patients: As a result of the 21st Century Cures Act, medical imaging exams and procedure reports are released immediately into your electronic medical record. You may view this report before your referring provider. If you have questions, please contact your health care provider. Indication: RECURRENT ADENOCARCINOMA OF COLORECTAL REGION Technique: Postcontrast CT chest, abdomen and pelvis. 100 cc Isovue 370 intravenous contrast. Please note that all CT scans at this facility use dose modulation, iterative reconstruction, and/or weight-based dosing when appropriate to reduce radiation dose to as low as reasonably achievable. Comparison: MRI 02/04/2023, CT 07/31/2022 Findings: In the chest, there is increased size of a masslike density within the left lower lobe measuring 2.4 cm. Also increased size masslike area within the right lung base, now measuring 9.8 x 6.6 cm. The right mainstem bronchus is obstructed. No air bronchograms are present within this area of parenchymal density. No compression fracture. No destructive osseous lesion. Similar mildly prominent precarinal lymph node. Visualized thyroid normal. No axillary adenopathy. No pleural effusion. No pericardial effusion. Mild increased prominence of a faint parenchymal density within the anterior left lung. In the abdomen, there is the suggestion of slight decreased size of the previously noted hypodense mass within the inferior liver, now measuring 4.3 cm compared to 4.7 cm on the prior exam. Also there is the suggestion of decreased size of the hypodense mass more superiorly within the right hepatic lobe which now measures 3.1 x 1.6 cm compared to 3.2 x 2.1 cm on the prior exam. However, there is a new area of subtle decreased density within the left hepatic lobe, see series 10, image 34. This measures 1.5 cm. This area also appears subtle on the MRI exam. Calcified stone in the gallbladder is present measuring 2.6 cm, as before. No biliary obstruction. The spleen is normal. No hiatal hernia. Adrenal glands normal. Normal kidneys. No hydronephrosis. The pancreas is within normal limits. Normal stomach. Small bowel appears normal. No retroperitoneal or mesenteric adenopathy. In the pelvis, and the bladder is incompletely distended with wall thickening that is likely secondary to incomplete distention. Prostate calcifications are present. Postop changes of partial distal colectomy. No inflammatory change. The appendix is normal. Fat filled inguinal hernias are similar. No pelvic or inguinal adenopathy. Similar appearance of the S1 vertebral body on the sagittal reformatted images. Incidental bone islands within the femoral heads. Synovial herniation pit right proximal femur. Impression: There appears to be a new suspicious lesion within the liver measuring 1.5 cm-correlating with the MRI. The other lesions within the liver appear to have decreased in size compared to the prior CT scan from July 2022. Abrupt cutoff of the right mainstem bronchus with resultant complete collapse of the right middle lobe resulting in a masslike area of density in the right lung base which has increased compared to the prior study. Bronchoscopy recommended. Increased size/conspicuity of a nodular density within the left lower lobe measuring 2.4 cm, superimposed upon chronic atelectasis concerning for metastatic focus. Please note that all CT scans at this facility use dose modulation, iterative reconstruction, and/or weight-based dosing when appropriate to reduce radiation dose to as low as reasonably achievable. Dictated by Seth Tomlinson MD @ 02/06/2023 1:36:18 PM (Electronically Signed)
== END 2023-02-04 08:17 | disposition home or self-care (01) ==
LOC: MRI 08:17
PROVIDERS: PCP Family Medicine; Visit Provider Internal Medicine Hematology & Oncology
DX: C19 Malignant neoplasm of rectosigmoid junction (principal)
CPT/HCPCS: 71260; 74177; 74183; A9575; Q9967

== ENCOUNTER 2023-07-01 14:30 | Outpatient (RCR) | payer OTHER, SELFPAY ==
--- NOTE | 2022-12-09 14:56 | ONC.NURNOTE ---
Patient did not confirm appointment set up for him for December 08 and continues not to answer calls or return calls. Did not show up for appointment 12/08 Message left for Melvina (life partner) to have Bret call us as well
--- NOTE | 2022-12-30 12:32 | ONC.NURNOTE ---
Patient called asking about MD appointment and going over liquid biopsy. Does admit to having messages on phone but has been so busy with SO and with new job he hasn't been able to call and get things schedule. Patient given number to [facility] interventional radiology but unable to get through so typewriter ribbon winder called and got another number for patient to call [facility] ([phone]) Patient set up for 01/07 liver biopsy at [facility] with Dr. Barboza and pre-op physical January [address] Turner. Then will go over everything January 22 Images pushed to [facility] again and orders re-faxed to [phone]
[2023-01-26 15:12] LABS: Basophils Absolute Auto 0.02 K/uL (0.00-0.30); Basophils Percent Auto 0.3 % (0.0-3.0); Eosinophils Percent Auto 9.5 % (0.0-7.0); Hematocrit 42.9 % (37.0-53.0); Hemoglobin* 14.9 gm/dL (13.5-17.5); Immature Granulocytes Abs Auto 0.02 K/uL (0.00-0.30); Immature Granulocytes Pct Auto 0.3 %; Lymphocytes Absolute Auto 1.77 K/uL (0.90-2.90); Lymphocytes Percent Auto 28.9 % (20-44); Mean Corpuscular HGB Conc 35 gm/dL (32-36); Mean Corpuscular Hemoglobin 32 pg (26-34); Mean Corpuscular Volume 91 fL (80-100); Monocytes Percent Auto 10.8 % (0.0-11.0); Neutrophils Absolute Auto 3.08 K/uL (1.7-7.0); Neutrophils Percent Auto 50.2 % (42.0-72.0); Platelet Count* 149 K/uL (140-440); RDW Coefficient of Variation % 12.1 % (11.5-15.5); Red Blood Count 4.72 m/uL (4.30-5.90); White Blood Count* 6.13 K/uL (4.50-11.00)
[2023-01-26 15:16] LABS: Slide Review Reflex No
[2023-01-26 15:27] LABS: Albumin* 4.3 g/dL (3.3-5.0); Chloride* 105 mmol/L (96-114); Sodium* 141 mmol/L (135-149)
[2023-01-26 15:28] LABS: Potassium* 4.3 mmol/L (3.6-5.1)
[2023-01-26 15:30] LABS: Alkaline Phosphatase* 101 U/L (40-150); Aspartate Amino Transferase* 31 U/L (12-35); Bilirubin Total* 0.6 mg/dL (0.1-1.5); Blood Urea Nitrogen* 18 mg/dL (7-30); Carbon Dioxide* 31 mmol/L (20-32); Creatinine* 0.9 mg/dL (0.5-1.5); Estimated Glomerular Filt Rate 103 ml/min; Total Protein* 7.8 g/dL (6.0-8.3)
[2023-01-26 15:31] LABS: Alanine Aminotransferase* 22 U/L (4-50); Calcium* 9.2 mg/dL (8.4-10.6); Glucose* 81 mg/dL (60-115)
[2023-01-29 10:20] LABS: Carcinoembryonic Antigen 3.7 ng/mL (<=3.8)
--- NOTE | 2023-03-04 09:49 | ONC.NURNOTE ---
Patient came in yesterday evening to discuss recent scan with nursing stating This is why I had that cough Patient had cancelled biopsy due to cough at end of december and hasn't rescheduled and now is concerned about CT scan. Dr. Rizvi did look at scan and wanted patient to report on his breathing due to findings on scan. Patient called this am and message left for him to call back about his breathing. Last evening film writer told patient importance of following through with procedures and importance of taking care of himself due to the cancer growing and this becoming a worse situation the more time he takes to get biopsy and back for treatment. Dr. Rizvi put NEW orders in at [facility] and hopefully patient will follow through with this. (Old orders set up at [facility]) Images pushed to [facility]
--- NOTE | 2023-03-10 10:36 | ONC.NURNOTE ---
Addendum entered by Geetha Ortiz RN 03/10/23 13:17: Roll Out Manager was able to touch base with patient and he is aware of his appointment at 1115 in [place] tomorrow with pulmonary medicine. He will reach out to the number that they left to determine where he needs to go to be seen. Nursing to watch for results and plan of this in order to schedule follow up with Dr. Rizvi. Original Note: Patient called the office this morning stating that he has not yet heard from [facility] regarding his biopsy. Roll Out Manager contacted them, and found that both the pulmonary medicine and radiology consults need to be done in [place]. Pulmonary Medicine consult was scheduled for tomorrow, Thursday at 11:15 by . [place] to call patient and give instructions on where to go for this. This appointment needs to be completed prior to biopsy being scheduled, so patient's appointment for next week will need to be moved out. LMOM for patient to let him know that web content writer made this appointment and that he needs to call [place] [phone] - pulmonary medicine if he was unable to picker/puller the phone when they called him. When web content writer talked to patient earlier today, he said that breathing was fine. Continues to have cough with some blood in mucous. No changes in the last couple of months.
--- NOTE | 2023-03-17 14:16 | ONC.NURNOTE ---
Addendum entered by Tawny Blunt RN 03/18/23 14:54: Pt called today to update [facility] staff that he scheduled a consult and MR with the liver ablation team at [facility]. Appt 04/14/23. Original Note: Family Nurse spoke to pt today after having bronchoscopy yesterday. Appt made for pt to follow up with Dr. Rizvi on 04/02/23. Pt also inquiring about liver ablation, per [facility] they have reached out to pt multiple times. Pt encouraged to call them back to schedule. Pt verbalized understanding of plan of care.
--- NOTE | 2023-03-19 12:35 | ONC.NURNOTE ---
Bret called and reports that his ablation has been scheduled for 03/24/23 he had a video visit today with the ablation team RTC appt reviewed for 03/31/23
--- NOTE | 2023-04-03 15:53 | ONC.NURNOTE ---
SWAPNIL submitted this am for Tramadol via covermymeds patient wants to fruit or nut picker his RX- follow up call to plan to check status and it is still pending- requested expedited review Bret called with update
--- NOTE | 2023-04-06 11:56 | ONC.NURNOTE ---
PA approval for Tramadol 50 mg tablets from 04/03/23-04/03/24 PA # [id number] [facility] Medicaid [place] Uniform Prior Authorization and Formulary Exception Request Form Prior Authorization and Formulary Exception Request for [facility] Medicaid phone fax
[2023-04-24 13:26] LABS: Est. Creatinine Clearance* 66.73; Estimated Glomerular Filt Rate 91 ml/min
== END 2023-07-25 23:59 | disposition home or self-care (01) ==
LOC: CCIC 14:30
PROVIDERS: PCP Family Medicine; Referring Provider Family Medicine; Visit Provider Internal Medicine Hematology & Oncology
DX: C19 Malignant neoplasm of rectosigmoid junction (principal)
CPT/HCPCS: 36415; 36592; 80053; 82378; 82565; 85025; 99212; 99213; 99214; 99215

== ENCOUNTER 2023-08-13 12:41 | Outpatient (CLI) | payer OTHER, SELFPAY ==
--- NOTE | 2023-08-13 13:00 | CRLHL7_ITS ---
For Patients: As a result of the Century Cures Act, medical imaging exams and procedure reports are released immediately into your electronic medical record. You may view this report before your referring provider. If you have questions, please contact your health care provider. INDICATION: Lung cancer. TECHNIQUE: CT chest, abdomen and pelvis acquired with IV contrast. 105 mL Isovue 370 COMPARISON: CT chest abdomen pelvis dated 02/04/2023, MRI 02/04/2023 FINDINGS: Chest: Cardiovascular structures: Heart size is normal. Thoracic aorta and main pulmonary artery are normal in caliber. Mediastinum and paty: No mass or adenopathy. Lungs: A few enlarging nodules measuring 9 millimeters left lung apex 01/05 left lateral upper lobe on measuring 6 millimeters. New nodule in the left lower lobe measuring 7 millimeters . Irregular opacity in the anterior left upper lobe on this could be an area of atelectasis that is unchanged. There is patchy consolidation in the lingula and also left lower lobe the left lower lobe masslike density previously seen is obscured this probably is related to post radiation treatment changes. Decreased size of right middle lobe masslike consolidation without air bronchogram. Pleura and pericardium: No effusions. Chest wall and axilla: No mass or adenopathy. Abdomen and Pelvis: Liver: Ablation changes within liver involving segment 7 and segment 6 are unchanged the prior MRI. New ablation change between segment 4/8 is new from the prior MRI. No new liver lesions are seen. Spleen: Unremarkable. Pancreas: Unremarkable. Gallbladder and bile ducts: Cholelithiasis Kidneys: Unremarkable. Adrenal glands: Unremarkable. GI tract: Rectosigmoid anastomosis. The bowel appears unremarkable Vascular structures: Unremarkable. Lymph nodes: Unremarkable. Miscellaneous: Moderate fat containing inguinal hernias. Pelvic Organs: Mildly enlarged prostate gland. Bones: Unremarkable for age. IMPRESSION: 1. Patchy consolidation in the lingula/left lower lobe most likely reflecting post treated changes. Decreased size of right middle lobe masslike consolidation without air bronchograms. This probably reflects collapse of the right middle lobe. 2. Enlargement of two left-sided pulmonary nodules and a new nodule seen. Findings suspicious for malignancy. 3. Ablation changes in the liver. No suspicious new lesions are seen. Please note that all CT scans at this facility use dose modulation, iterative reconstruction, and/or weight-based dosing when appropriate to reduce radiation dose to as low as reasonably achievable. Dictated by Paula Kendrick MD @ 08/16/2023 6:25:47 AM (Electronically Signed)
== END 2023-08-13 12:42 | disposition home or self-care (01) ==
LOC: CT 12:41
PROVIDERS: PCP Family Medicine; Visit Provider Internal Medicine
DX: C78.01 Secondary malignant neoplasm of right lung (principal); C78.02 Secondary malignant neoplasm of left lung; R59.0 Localized enlarged lymph nodes
CPT/HCPCS: 71260; 74177; Q9967

== ENCOUNTER 2023-08-18 09:36 | Outpatient (RCR) | payer OTHER, SELFPAY ==
--- NOTE | 2024-02-11 08:59 | ONC.NURNOTE ---
Received information from [facility] about patient needing to be seen by Medical Oncology. Patient is scheduled for PET scan in [place] on 02/12/2024, Labs for PDL1 and [id number] testing on 02/15/2024 in [place]. Patient needs follow up after this testing is resulted. He was scheduled on 03/02/[address] Belkys Cordova per [facility] recommendations. LMOM for patient to call back to acknowledge.
== END 2024-02-14 23:59 | disposition home or self-care (01) ==
LOC: CCIC 09:36
PROVIDERS: PCP Family Medicine; Referring Provider Family Medicine; Visit Provider Internal Medicine Hematology & Oncology
DX: C19 Malignant neoplasm of rectosigmoid junction (principal); K76.9 Liver disease, unspecified; R05.9 Cough, unspecified; C78.01 Secondary malignant neoplasm of right lung
CPT/HCPCS: 99212; 99215

== ENCOUNTER 2023-11-24 15:40 | Outpatient (CLI) | payer OTHER, SELFPAY ==
--- NOTE | 2023-11-24 16:00 | CRLHL7_ITS ---
For Patients: As a result of the Century Cures Act, medical imaging exams and procedure reports are released immediately into your electronic medical record. You may view this report before your referring provider. If you have questions, please contact your health care provider. Indication: Colon cancer Technique: CHEST ABDOMEN PELVIS WITH ISOVUE 370 [id number] Please note that all CT scans at this facility use dose modulation, iterative reconstruction, and/or weight-based dosing when appropriate to reduce radiation dose to as low as reasonably achievable. Comparison: 08/13/2023 Findings: In the chest, there is no suspicious thyroid lesion. Masslike opacity within the right infrahilar lung is similar. Interval development of masslike density within the left infrahilar space and persistent parenchymal densities along the left lower lobe bronchovascular bundle. He increased size of peripheral nodule within the left lower lobe now measuring 9 millimeters compared to 6-7 millimeters on the prior study. Increased size of subpleural nodule left upper lobe now measuring 7.5 millimeters compared to 6 millimeters on the prior exam. No pleural effusion. No pneumothorax. Persistent density in the anterior lingula. No fracture is present. Degenerative facet arthropathy L5-S1. Similar nodes in the mediastinum and both paty. In the abdomen, similar morphology in size of multifocal low-density lesions throughout the liver. Slight increased conspicuity of hypodense ill-defined lesion within the right hepatic lobe measuring 3 cm. Chronic peripherally calcified stone in the gallbladder measuring 2.4 cm. No splenic lesion. Adrenal glands are normal. No hydronephrosis. No solid renal mass. Pancreas is normal. Atherosclerotic changes. No enlarged retroperitoneal lymph nodes. In the pelvis, the bladder is normal. Fat filled inguinal hernias are again noted. Postop changes of partial colectomy. No bowel obstruction. No free air or free fluid. No abscess. Normal appendix. Solid fusion across the left SI joint. Impression: Increased size of 2 left-sided pulmonary nodules. Increased masslike opacification within the left infrahilar lung. Increased conspicuity of subtle hypodense mass within the inferior right liver. Similar appearance of the masslike density within the right lung. Please note that all CT scans at this facility use dose modulation, iterative reconstruction, and/or weight-based dosing when appropriate to reduce radiation dose to as low as reasonably achievable. Dictated by Seth Tomlinson MD @ 11/25/2023 11:30:02 AM (Electronically Signed)
== END 2023-11-24 15:41 | disposition home or self-care (01) ==
LOC: CT 15:41
PROVIDERS: PCP Family Medicine; Visit Provider Nurse Practitioner
DX: C18.9 Malignant neoplasm of colon, unspecified (principal); R91.8 Other nonspecific abnormal finding of lung field; R16.0 Hepatomegaly, not elsewhere classified
CPT/HCPCS: 71260; 74177; Q9967

== ENCOUNTER 2024-03-31 17:00 | Outpatient (CLI) | payer OTHER, SELFPAY ==
--- NOTE | 2024-03-31 17:00 | PE_ITS ---
[facility] [address] [facility] [address] Phone:?[phone] Fax:?[phone] Referring Physician Information: Shabnam Rubin N.P. [address] [facility] [place] [facility] [address] Phone:?[phone] Fax:?[phone] Patient:Tiera Ruiz D.O.B:?1970 Sex:?Male Phone:?[phone] [facility] MRN:?[id number] Exam Date:?03/31/2024 EXAM: PET/CT EYES TO THIGHS, CANCER RESTAGING CLINICAL INFORMATION: Colorectal cancer, restaging. TECHNICAL INFORMATION: Helical acquisition of data was obtained from the orbits to the upper thighs with reconstruction of 3.75 mm thick images at 3.[address] data was used for attenuation correction. PET scanning was performed through the same anatomic range 60 minutes following administration of 12.08 mCi of 18-FDG delivered intravenously. The patient's glucose at the time of the injection was 79 mg/dL. PET, CT and PET/CT fusion images are interpreted using a computer viewing workstation. PET, CT and PET/CT fusion images were archived and saved in the patient's permanent medical record. COMPARISON: CT CAP from 11/24/2023, PET-CT from 04/24/2023. INTERPRETATION: Head and Neck: There are no abnormal hypermetabolic foci within the head or neck. There is physiologic uptake in the intracranial soft tissues. Chest: Overall increase in metastatic burden within the chest. Index nodules include: ...a) left apical nodule (Se 2 Im 71) currently measures 1.7 x 1.3 cm with a maximum SUV of 18.02. This nodule measured 1.1 x 1.0 cm in October 2023. ...b) left lower lobe nodule (Se 2 Im 104) currently measures 1.8 x 1.3 cm with a maximum SUV of 25.27. This nodule measured 0.9 x 0.8 cm in October 2023. Poorly circumscribed masslike opacity is seen in the perihilar portions of both lungs. Overall size and conspicuity are stable since October 2023. Maximum SUV in the left infrahilar portion is 15.3. Maximum SUV in the right perihilar portion is 16.15. Corresponding SUVs were not reported on the prior PET-CT. Background mediastinal blood pool uptake has a maximum SUV of 2.71. Abdomen and Pelvis: Hypermetabolic mass lesion in the right hepatic lobe (Se 2 Im 140) has indistinct margins on this nonenhanced attenuation correction CT, but measures roughly 4.4 x 3.6 cm with a maximum SUV of 16.41. The viable component of the lesion measures roughly 3.8 x 2.4 cm in October 2023. Corresponding SUVs were not reported on the prior PET-CT. Background hepatic parenchymal uptake has a maximum SUV of 4.16. There is physiologic excretion of radiotracer in the urine and bowel. Skeleton, Musculature, and Integument: No abnormal hypermetabolic foci within the skeleton. No bhupinder osteoblastic or osteolytic disease. CONCLUSION: Overall worsening disease burden within the lungs and liver. Index lesions provided above. Electronically signed on 04/01/2024 2:44:00 PM by Sloan Dave M.D.
== END 2024-03-31 17:01 | disposition home or self-care (01) ==
LOC: RAD 17:01
PROVIDERS: PCP Family Medicine; Visit Provider Clinical Nurse Specialist
DX: C19 Malignant neoplasm of rectosigmoid junction (principal)
CPT/HCPCS: 78815; A9552

== ENCOUNTER 2024-07-05 12:00 | Outpatient (RCR) | payer OTHER, SELFPAY ==
--- NOTE | 2024-02-29 12:22 | ONC.NURNOTE ---
Late entry from discussion with patient on 02/18/2024: Patient did not make his appointment for his PET scan in [place] 02/11 and is refusing to go there.? He wants this done in [place], it was scheduled for 03/03/2024 (could not get him in today, and that was next available). ? Therefore, his appointment with Dr. Rizvi needed to be moved out.? He is unable to be seen the week of 03/14/2024 (his availability), so he is scheduled to see Dr. Rizvi to go over everything on March 17 at 1300.
[2024-03-15 12:49] LABS: Basophils Absolute Auto 0.02 K/uL (0.00-0.30); Basophils Percent Auto 0.3 % (0.0-3.0); Eosinophils Absolute Auto 0.47 K/uL (0.00-0.50); Eosinophils Percent Auto 6.7 % (0.0-7.0); Hematocrit 41.3 % (37.0-53.0); Hemoglobin* 14.1 gm/dL (13.5-17.5); Immature Granulocytes Abs Auto 0.07 K/uL (0.00-0.30); Lymphocytes Percent Auto 28.5 % (20-44); Mean Corpuscular HGB Conc 34 gm/dL (32-36); Mean Corpuscular Hemoglobin 31 pg (26-34); Mean Corpuscular Volume 91 fL (80-100); Monocytes Percent Auto 9.7 % (0.0-11.0); Neutrophils Absolute Auto 3.78 K/uL (1.7-7.0); Neutrophils Percent Auto 53.8 % (42.0-72.0); Platelet Count* 157 K/uL (140-440); RDW Coefficient of Variation % 12.2 % (11.5-15.5); Red Blood Count 4.52 m/uL (4.30-5.90); White Blood Count* 7.02 K/uL (4.50-11.00)
[2024-03-15 12:53] LABS: Slide Review Reflex No
[2024-03-15 13:01] LABS: Albumin* 4.8 g/dL (3.3-5.0)
[2024-03-15 13:02] LABS: Chloride* 104 mmol/L (96-114); Potassium* 4.2 mmol/L (3.6-5.1); Sodium* 142 mmol/L (135-149)
[2024-03-15 13:04] LABS: Anion Gap 7 mEq/L (7-15); Aspartate Amino Transferase* 34 U/L (12-35); Bilirubin Total* 0.9 mg/dL (0.1-1.5); Carbon Dioxide* 31 mmol/L (20-32); Estimated Glomerular Filt Rate 90 ml/min; Total Protein* 8.6 g/dL (6.0-8.3)
[2024-03-15 13:05] LABS: Alanine Aminotransferase* 18 U/L (4-50); Alkaline Phosphatase* 103 U/L (40-150); Blood Urea Nitrogen* 19 mg/dL (7-30); Calcium* 9.4 mg/dL (8.4-10.6); Glucose* 87 mg/dL (60-115)
[2024-03-16 16:57] LABS: Free T4 Free Thyroxine* 0.77 ng/dL (0.70-1.85)
[2024-03-17 00:08] LABS: Carcinoembryonic Antigen 14.1 ng/mL (<=3.8)
--- NOTE | 2024-03-22 12:43 | URNOTE ---
Request received for authorization for Pembrolizumab (Keytruda) (J9271). Prior authorization is approved per [employer] pembrolizumab 1mg (J9271), a total of 1200.0units (6 doses) for date range: 03/29/2024 to 09/28/2024, Ref#[id number].
--- NOTE | 2024-03-29 10:59 | ONC.NURNOTE ---
Patient called to cancel his appointments, he needs to take his significant other to the doctor. He was asked if he has talked to [facility] as requested by them in the last two days, he has not. He was made aware they will cancel his appointment on if they do not hear back from him by 1100 tomorrow. He confirmed this with them, and his appointment was moved out to the week of 04/11 d/t availability of patient.
[2024-04-12 14:10] LABS: Basophils Absolute Auto 0.02 K/uL (0.00-0.30); Basophils Percent Auto 0.3 % (0.0-3.0); Eosinophils Percent Auto 8.7 % (0.0-7.0); Hematocrit 43.7 % (37.0-53.0); Hemoglobin* 15.2 gm/dL (13.5-17.5); Immature Granulocytes Abs Auto 0.02 K/uL (0.00-0.30); Immature Granulocytes Pct Auto 0.3 %; Lymphocytes Absolute Auto 1.83 K/uL (0.90-2.90); Lymphocytes Percent Auto 26.1 % (20-44); Mean Corpuscular HGB Conc 35 gm/dL (32-36); Mean Corpuscular Hemoglobin 31 pg (26-34); Mean Corpuscular Volume 90 fL (80-100); Monocytes Percent Auto 9.7 % (0.0-11.0); Neutrophils Absolute Auto 3.84 K/uL (1.7-7.0); Neutrophils Percent Auto 54.9 % (42.0-72.0); Platelet Count* 198 K/uL (140-440); Red Blood Count 4.85 m/uL (4.30-5.90)
[2024-04-12 14:14] LABS: Slide Review Reflex No
[2024-04-12 14:30] LABS: Albumin* 4.6 g/dL (3.3-5.0); Chloride* 103 mmol/L (96-114); Potassium* 4.1 mmol/L (3.6-5.1); Sodium* 140 mmol/L (135-149)
[2024-04-12 14:33] LABS: Alanine Aminotransferase* 17 U/L (4-50); Alkaline Phosphatase* 120 U/L (40-150); Anion Gap 6 mEq/L (7-15); Aspartate Amino Transferase* 29 U/L (12-35); Blood Urea Nitrogen* 20 mg/dL (7-30); Carbon Dioxide* 31 mmol/L (20-32); Creatinine* 1.2 mg/dL (0.5-1.5); Estimated Glomerular Filt Rate 72 ml/min; Glucose* 101 mg/dL (60-115); Total Protein* 8.1 g/dL (6.0-8.3)
[2024-04-12 14:34] LABS: Calcium* 9.2 mg/dL (8.4-10.6)
[2024-04-13 13:53] VITALS: BP 119/60; PULSE 102; RESP 16; TEMP 35.7; O2SAT 93
[2024-04-13 13:59] VITALS: BP 100/60; PULSE 80; RESP 16; TEMP 36.5; O2SAT 99
[2024-04-13] MEDS: PEMBROLIZUMAB 200 MG, TUBING PRIMARY 1 EACH, In-line 0.2 micron filter set 1 EACH in 0.... 216 MG IVPB (14:20)
--- NOTE | 2024-04-13 15:52 | ONC.NURNOTE ---
Pt here for 1st dose Keytruda; tolerated well. Due to pt's rotating work schedule, he feels he is unable to come back in 3 weeks for next infusion. That week he will be on 10 hr night shifts and needs to sleep ~8a - ~8p. Reviewed that q 21 days is the dosing schedule for Keytruda; he verbalizes understanding and chooses to return for infusion in 4 wks. Scheduled 4 wks out and adjusted future appts.
--- NOTE | 2024-04-14 11:53 | ONC.NURNOTE ---
Called and left message for pt to see how he is feeling after 1st Keytruda yesterday. Instructed pt to call back and update.
--- NOTE | 2024-05-10 16:10 | ONC.NURNOTE ---
Patient was a no show today for his labs. Patient is scheduled at 2:30 pm tomorrow 05/11 for [facility] and will need labs drawn before. RN called patient to see if he can come in earlier. No answer. VM left to call [facility] back about his appt on 05/11. 05/10 lab appt cancelled and labs added to 05/11 appt.
[2024-05-11 14:37] LABS: Basophils Absolute Auto 0.03 K/uL (0.00-0.30); Basophils Percent Auto 0.4 % (0.0-3.0); Eosinophils Percent Auto 12.2 % (0.0-7.0); Hematocrit 44.4 % (37.0-53.0); Immature Granulocytes Abs Auto 0.01 K/uL (0.00-0.30); Immature Granulocytes Pct Auto 0.1 %; Lymphocytes Absolute Auto 2.15 K/uL (0.90-2.90); Lymphocytes Percent Auto 25.4 % (20-44); Mean Corpuscular HGB Conc 34 gm/dL (32-36); Mean Corpuscular Hemoglobin 31 pg (26-34); Mean Corpuscular Volume 91 fL (80-100); Monocytes Percent Auto 8.2 % (0.0-11.0); Neutrophils Absolute Auto 4.55 K/uL (1.7-7.0); Neutrophils Percent Auto 53.7 % (42.0-72.0); Platelet Count* 162 K/uL (140-440); RDW Coefficient of Variation % 12.6 % (11.5-15.5); Red Blood Count 4.87 m/uL (4.30-5.90); White Blood Count* 8.46 K/uL (4.50-11.00)
[2024-05-11 14:44] VITALS: BP 141/73; PULSE 87; RESP 16; TEMP 36.2; O2SAT 93
[2024-05-11 14:51] LABS: Albumin* 4.5 g/dL (3.3-5.0); Chloride* 104 mmol/L (96-114); Potassium* 4.4 mmol/L (3.6-5.1); Sodium* 141 mmol/L (135-149)
[2024-05-11 14:53] LABS: Estimated Glomerular Filt Rate 90 ml/min
[2024-05-11 14:54] LABS: Alanine Aminotransferase* 17 U/L (4-50); Alkaline Phosphatase* 122 U/L (40-150); Anion Gap 5 mEq/L (7-15); Aspartate Amino Transferase* 30 U/L (12-35); Bilirubin Total* 0.6 mg/dL (0.1-1.5); Blood Urea Nitrogen* 18 mg/dL (7-30); Carbon Dioxide* 32 mmol/L (20-32); Glucose* 97 mg/dL (60-115)
[2024-05-11 14:55] LABS: Calcium* 9.6 mg/dL (8.4-10.6)
[2024-05-11 15:08] LABS: Slide Review Reflex No
--- NOTE | 2024-05-11 15:23 | ONC.NURNOTE ---
Patient is due for next cycle of chemotherapy the week of 05/30, patient is unable to come that week and is requesting that appointments be moved out one week.
[2024-05-11] MEDS: PEMBROLIZUMAB 200 MG, TUBING PRIMARY 1 EACH, In-line 0.2 micron filter set 1 EACH in 0.... 216 MG IVPB (15:25)
[2024-05-11] MEDS: SODIUM CHLORIDE 0.9 % (FLUSH) 10 ML SYRINGE IVF (16:00)
[2024-05-11] MEDS: 0.9 % SODIUM CHLORIDE 250 ml IV (16:00)
--- NOTE | 2024-05-11 16:10 | ONC.NURNOTE ---
Addendum entered by Tawny Blunt RN 06/09/24 16:32: Pt not aware he should be taking synthroid when in clinic today. Left message for pt that he should be taking this, it was sent to [facility] pharmacy on 05/16/24. Addendum entered by Julieta Scruggs RN 05/16/24 13:40: Dr. Rizvi reviewed TSH and prescribed Levothyroxine and script sent to pharmacy. Left patient message on patient's voicemail to greens picker medication and start taking it noting date he starts it. Original Note: TSH found to be elevated. Will be addressed with provider when she returns to office on Thursday. Flowsheet with information on timing of treatment in her mailbox to address. Patient aware that will receive phone call on Thursday.
--- NOTE | 2024-06-06 15:49 | ONC.NURNOTE ---
Pt did not show up for blood draw appt today. Left message for pt to come in tomorrow at 1330 if he would like to be treated tomorrow.
--- NOTE | 2024-06-07 10:51 | ONC.NURNOTE ---
patient called to change his appts, he has a conflict with today's appt patient agreed to come in tomorrow for lab he sees Fatoumata with planned keytruda following of note: Bret is scheduled for a tooth extraction on am
[2024-06-08 14:12] LABS: Basophils Absolute Auto 0.06 K/uL (0.00-0.30); Basophils Percent Auto 0.6 % (0.0-3.0); Eosinophils Percent Auto 19.4 % (0.0-7.0); Hemoglobin* 14.7 gm/dL (13.5-17.5); Immature Granulocytes Abs Auto 0.01 K/uL (0.00-0.30); Immature Granulocytes Pct Auto 0.1 %; Lymphocytes Absolute Auto 2.48 K/uL (0.90-2.90); Lymphocytes Percent Auto 26.3 % (20-44); Mean Corpuscular HGB Conc 34 gm/dL (32-36); Mean Corpuscular Hemoglobin 31 pg (26-34); Mean Corpuscular Volume 91 fL (80-100); Monocytes Percent Auto 8.6 % (0.0-11.0); Neutrophils Absolute Auto 4.23 K/uL (1.7-7.0); Platelet Count* 164 K/uL (140-440); RDW Coefficient of Variation % 12.3 % (11.5-15.5); Red Blood Count 4.73 m/uL (4.30-5.90); White Blood Count* 9.42 K/uL (4.50-11.00)
[2024-06-08 14:14] LABS: Slide Review Reflex No
[2024-06-08 14:27] LABS: Albumin* 4.5 g/dL (3.3-5.0); Chloride* 105 mmol/L (96-114)
[2024-06-08 14:28] LABS: Potassium* 4.4 mmol/L (3.6-5.1); Sodium* 141 mmol/L (135-149)
[2024-06-08 14:30] LABS: Anion Gap 4 mEq/L (7-15); Aspartate Amino Transferase* 30 U/L (12-35); Bilirubin Total* 0.6 mg/dL (0.1-1.5); Carbon Dioxide* 32 mmol/L (20-32); Estimated Glomerular Filt Rate 89 ml/min
[2024-06-08 14:31] LABS: Alanine Aminotransferase* 14 U/L (4-50); Alkaline Phosphatase* 136 U/L (40-150); Blood Urea Nitrogen* 18 mg/dL (7-30); Calcium* 9.5 mg/dL (8.4-10.6); Glucose* 94 mg/dL (60-115)
[2024-06-09] MEDS: PEMBROLIZUMAB 200 MG, TUBING PRIMARY 1 EACH, In-line 0.2 micron filter set 1 EACH in 0.... 216 MG IVPB (12:17)
[2024-07-04 09:44] LABS: Basophils Absolute Auto 0.03 K/uL (0.00-0.30); Basophils Percent Auto 0.5 % (0.0-3.0); Eosinophils Percent Auto 11.6 % (0.0-7.0); Hematocrit 43.2 % (37.0-53.0); Hemoglobin* 14.6 gm/dL (13.5-17.5); Immature Granulocytes Abs Auto 0.01 K/uL (0.00-0.30); Immature Granulocytes Pct Auto 0.2 %; Lymphocytes Absolute Auto 1.81 K/uL (0.90-2.90); Lymphocytes Percent Auto 27.2 % (20-44); Mean Corpuscular HGB Conc 34 gm/dL (32-36); Mean Corpuscular Hemoglobin 31 pg (26-34); Mean Corpuscular Volume 91 fL (80-100); Monocytes Percent Auto 6.5 % (0.0-11.0); Platelet Count* 147 K/uL (140-440); RDW Coefficient of Variation % 12.5 % (11.5-15.5); Red Blood Count 4.73 m/uL (4.30-5.90); White Blood Count* 6.65 K/uL (4.50-11.00)
[2024-07-04 09:46] LABS: Slide Review Reflex No
[2024-07-04 10:02] LABS: Albumin* 4.6 g/dL (3.3-5.0); Chloride* 103 mmol/L (96-114)
[2024-07-04 10:03] LABS: Potassium* 4.1 mmol/L (3.6-5.1); Sodium* 140 mmol/L (135-149)
[2024-07-04 10:05] LABS: Alanine Aminotransferase* 13 U/L (4-50); Alkaline Phosphatase* 120 U/L (40-150); Anion Gap 3 mEq/L (7-15); Aspartate Amino Transferase* 31 U/L (12-35); Bilirubin Total* 0.8 mg/dL (0.1-1.5); Blood Urea Nitrogen* 14 mg/dL (7-30); Carbon Dioxide* 34 mmol/L (20-32); Creatinine* 0.9 mg/dL (0.5-1.5); Est. Creatinine Clearance* 75.52; Estimated Glomerular Filt Rate 101 ml/min; Glucose* 104 mg/dL (60-115)
[2024-07-04 10:06] LABS: Calcium* 9.4 mg/dL (8.4-10.6)
[2024-07-05] MEDS: SODIUM CHLORIDE 0.9 % (FLUSH) 10 ML SYRINGE IVF ×2 (12:29→13:11)
[2024-07-05] MEDS: 0.9 % SODIUM CHLORIDE 250 ml IV (12:30)
[2024-07-05] MEDS: PEMBROLIZUMAB 200 MG, TUBING PRIMARY 1 EACH, In-line 0.2 micron filter set 1 EACH in 0.... 216 MG IVPB (12:32)
[2024-07-07 00:17] LABS: Carcinoembryonic Antigen 31.2 ng/mL (<=3.8)
--- NOTE | 2024-07-25 14:45 | ONC.NURNOTE ---
Patient was a no show today for Labs/Dr. Rizvi/[facility]. RN attempted to call patient to reschedule. No answer. Voicemail left for patient to call back.
== END 2024-09-11 23:59 | disposition home or self-care (01) ==
LOC: CCIC 12:00
PROVIDERS: Clinical Nurse Specialist; PCP Family Medicine; Referring Provider Family Medicine; Visit Provider Internal Medicine Hematology & Oncology
DX: C19 Malignant neoplasm of rectosigmoid junction (principal); Z51.12 Encounter for antineoplastic immunotherapy; R05.9 Cough, unspecified; Z85.6 Personal history of leukemia
CPT/HCPCS: 36415; 71260; 74177; 80053; 82378; 84439; 84443; 84481; 85025; 96413; 99214; 99215; G0463; J7050; J9271; Q9967